=== PATIENT | male | born 1980 ===

== ENCOUNTER 2017-08-10 11:26 | Emergency (ER) | payer OTHER ==
[2017-08-10 11:54] VITALS: BMI 25.8
[2017-08-10 11:58] VITALS: BP 126/84; PULSE 74; RESP 16; TEMP 98.1; O2SAT 99
--- NOTE | 2017-08-10 12:10 | C.PDOC ---
History Of Present Illness 37 yo male come in for evaluation of Right sided ribcage pain gradually developed for 2 days after sustained mechanical fall. Pt sts, pain is localized over Right sided ribcage, worse with movement. Otherwise, pt denies head injury , LOC, syncope, headache, dizziness, visual changes, focal deficits, neck pain, SOB, dyspnea, diaphoresis, palpitation, abd. pain, V/.D, denies saddle anesthesia, incontinence, denies obvious deformity, weakness to B/L UEs and LEs. Ambulate to ED for evaluation, appears in pain. Time Seen by Provider: 08/10/17 11:34 Chief Complaint (Nursing): Back Pain History Per: Patient Onset/Duration Of Symptoms: Gradual Past Medical History Reviewed: Historical Data, Nursing Documentation, Vital Signs Vital Signs: Last Vital Signs Temp 98.1 F 08/10/17 11:57 Pulse 74 08/10/17 11:57 Resp 16 08/10/17 11:57 BP 126/84 08/10/17 11:57 Pulse Ox 99 08/10/17 12:16 - Medical History PMH: No Chronic Diseases Family History: States: No Known Family Hx - Social History Hx Alcohol Use: No Hx Substance Use: Yes - Immunization History Hx Tetanus Toxoid Vaccination: No Hx Influenza Vaccination: No Hx Pneumococcal Vaccination: No Review Of Systems Except As Marked, All Systems Reviewed And Found Negative. Constitutional: Negative for: Fever, Chills Eyes: Negative for: Vision Change ENT: Negative for: Ear Discharge, Nose Discharge Cardiovascular: Negative for: Chest Pain Respiratory: Negative for: Shortness of Breath Gastrointestinal: Negative for: Nausea, Vomiting, Abdominal Pain Musculoskeletal: Positive for: Back Pain. Negative for: Neck Pain Skin: Negative for: Bruising Neurological: Negative for: Weakness, Numbness, Altered Mental Status, Headache , Dizziness Physical Exam - Physical Exam Appears: Well, No Acute Distress Skin: Normal Color, Warm, Dry, No Ecchymosis Head: Atraumatic, Normacephalic Eye(s): bilateral: PERRL Ear(s): Bilateral: Normal Nose: No Deformity, No Tenderness Oral Mucosa: Moist, No Drooling Tongue: Normal Appearing Throat: No Drooling Neck: Normal ROM, Trachea Midline, No Midline Cervical Tenderness, No Paracervical Tenderness, No Step Off Deformity, Supple Chest: Symmetrical, No Deformity, Tenderness (moderate Right posterior ribcage tendreness overlying 8-11 intercostal spaces. No palpable deformity), No Ecchymosis, No Subcutaneous Emphysema Cardiovascular: Rhythm Regular Respiratory: No Decreased Breath Sounds, No Accessory Muscle Use, No Stridor, No Wheezing Gastrointestinal/Abdominal: Soft, No Tenderness, No Distention, No Guarding Back: No Vertebral Tenderness, No Paraspinal Tenderness Extremity: Normal ROM, No Tenderness, No Deformity, No Swelling Neurological/Psych: Oriented x3, Normal Speech, Normal Motor, Normal Sensation, Normal Reflexes ED Course And Treatment O2 Sat by Pulse Oximetry: 99 Pulse Ox Interpretation: Normal - Other Rad Right side rib serial w/chest X-Ray: Interpreted by Me, Viewed By Me Interpretation: (-) acute fx or dislocation, (-) PTX Progress Note: On re-evaluation, pt is afebrile, hemodynamicaly stable. Non- toxic. Ambulatory in ED with stable gait. Head: AT/NC. neck: Supple, (-) midline tenderness. Lungs: CTA B/L, BS equal B/L. Chest wall: (+) Right posterior ribcage tenderness, no ecchymoses, no palpable deformity. CVS: (+) S1S2, reg. Abd: benign. FAROM of B/L UEs and LEs, no deformity. Neuorlogicaly intact. Imaging review and appears normal. Pt has clinical findings c/w Right sided ribs contusion s/p mechanical fall. Pt advised to F/u with PMD, Ortho in 2-3 days for re-eavl. return to Ed if any worsening or new changes. Disposition Counseled Patient/Family Regarding: Studies Performed, Diagnosis, Need For Followup, Rx Given - Disposition Referrals: [facility] [Outside] Disposition: HOME/ ROUTINE Disposition Time: 12:42 Condition: STABLE Additional Instructions: Take serena medication as prescribed Light duty, avoid physical activity for 1 week Follow up with PMD in 2-3 days for re-evaluation. Return to ED if any worsening or new changes. Prescriptions: Methocarbamol [Robaxin] 500 mg PO TID #14 tab traMADol [Ultram] 50 mg PO TID #7 tab Instructions: Bruised Rib (DC) Forms: [employer] (Faroese) - Clinical Impression Clinical Impression: Contusion of rib
--- NOTE | 2017-08-10 13:12 | RAD ---
PROCEDURE: Radiographs of the Chest and Right Ribs. HISTORY: injury COMPARISON: None available. TECHNIQUE: Frontal radiograph of the chest and multiple oblique radiographs of the right ribs were obtained. FINDINGS: RIGHT RIBS: No fracture or focal lesion visualized. LUNGS: Clear. PLEURA: No pneumothorax or pleural fluid. CARDIOVASCULAR: Normal sized heart. No pulmonary vascular congestion. OTHER FINDINGS: None. IMPRESSION: Unremarkable radiographs of the chest and right ribs. No right rib fracture.
== END 2017-08-10 13:00 | disposition home or self-care (01) ==
LOC: C.ER 11:26
DX: S20.211A Contusion of right front wall of thorax, initial encounter (principal); W19.XXXA Unspecified fall, initial encounter